=== PATIENT | male | born 1960 | race Caucasian/White ===

== ENCOUNTER → 2018-04-22 12:31 | Outpatient (CLI) | payer MEDICARE | END | disposition home or self-care (01) | LOC: D.CT 12:31 | DX: R19.09 Other intra-abdominal and pelvic swelling, mass and lump (principal) ==

== ENCOUNTER → 2018-05-04 06:32 | Outpatient (CLI) | payer MEDICARE ==
[2018-05-05 13:14] LABS: HEPATITIS C ANTIBODY 0.2 (0.0-0.9)
== END | disposition home or self-care (01) ==
LOC: D.LAB 06:32 → D.MRI 07:00
PROVIDERS: Internal Medicine Gastroenterology
DX: R93.8 Abnormal findings on diagnostic imaging of other specified body structures (principal); R63.4 Abnormal weight loss; R10.13 Epigastric pain; R11.0 Nausea; R14.3 Flatulence; R14.0 Abdominal distension (gaseous); R10.32 Left lower quadrant pain

== ENCOUNTER → 2018-07-09 11:20 | Outpatient (CLI) | payer MEDICARE ==
[~2018-07-09 11:20] MED LIST: FLOMAX0.4 MG PO; HYDROCODON-ACE1 EAC7 PO
== END | disposition home or self-care (01) ==
LOC: D.CT 11:20
DX: I88.0 Nonspecific mesenteric lymphadenitis (principal)

== ENCOUNTER 2018-08-09 22:56 | Emergency (ER) | payer MEDICARE ==
[~2018-08-09] VITALS: Ht 182.9 cm; Wt 88.6 kg
[2018-08-09 22:58] VITALS: Ht 182.9 cm; Wt 88.6 kg
[2018-08-10 00:06] LABS: BASOPHILS 0.3 % (0-2); EOSINOPHILS 1.4 % (0-7); HEMOGLOBIN 15.3 g/dL (13.5-17.5); IMMATURE GRANULOCYTES 0.2 % (0-5); LYMPHOCYTES 15.5 % (15-50); MCH 31.8 pg (26.0-34.0); MCHC 35.6 g/dL (31.0-37.0); MCV 89.4 fL (80.0-100.0); MEAN PLATELET VOLUME 11.1 fL (7.4-10.4); MONOCYTES 8.7 % (2-11); NEUTROPHILS 73.9 % (40-80); PLATELET COUNT 174 10x3/uL (130-400); RBC 4.81 10x6/uL (4.20-6.10); RDW 12.7 % (11.5-14.5); WBC 11.1 10x3/uL (4.8-10.8)
[2018-08-10 00:29] LABS: APPEARANCE HAZY (CLEAR); BACTERIA NONE SEEN /hpf (NONE SEEN); BILIRUBIN NEGATIVE (NEGATIVE); COLOR YELLOW (YELLOW); EPITHELIAL CELLS NSEEN /hpf (0-5); GLUCOSE NEGATIVE (NEGATIVE); KETONE MODERATE mg/dL (NEGATIVE); NITRITE NEGATIVE (NEGATIVE); PROTEIN TRACE mg/dL (NEGATIVE); RED CELLS - URINE >50 /hpf (0-5); SPECIFIC GRAVITY 1.015 (1.005-1.020); UROBILINOGEN NORMAL (NORMAL); WHITE CELLS - URINE NSEEN /hpf (0-5)
[2018-08-10 00:30] LABS: ANION GAP 22.3 mmol/L (8-16); BILIRUBIN - TOTAL 0.48 mg/dL (0.2-1.3); CALCIUM 8.6 mg/dL (8.5-10.1); CARBON DIOXIDE 21.5 mmol/L (21.0-32.0); CREATININE - SERUM 1.5 mg/dL (0.6-1.3); POTASSIUM - SERUM 3.8 mmol/L (3.5-5.1); PROTEIN - SERUM 7.5 g/dL (6.4-8.2)
[2018-08-10 00:30] LABS: AMORPHOUS SEDIMENT >1+ /lpf (NONE SEEN); URIC ACID CRYSTALS RARE /hpf (NONE SEEN)
[2018-08-10] MEDS ORDERED: HYDROCODON-ACE1 EAC7 PO (00:43)
[2018-08-10] MEDS ORDERED: FLOMAX0.4 MG PO (00:43)
[2018-08-10 01:19] VITALS: BP 114/75
== END 2018-08-10 01:19 | disposition home or self-care (01) ==
LOC: D.ER 22:56
PROVIDERS: Family Medicine
DX: N20.1 Calculus of ureter (principal)

== ENCOUNTER 2020-05-12 20:16 | Emergency (ER) | payer MEDICARE ==
[~2020-05-12] VITALS: Ht 182.9 cm; Wt 95.5 kg
[2020-05-12 20:28] VITALS: Ht 182.9 cm; Wt 95.5 kg
[2020-05-12 20:55] LABS: BASOPHILS 0.1 % (0-2); EOSINOPHILS 0.1 % (0-7); HEMATOCRIT 46.4 % (42.0-54.0); HEMOGLOBIN 16.1 g/dL (13.5-17.5); IMMATURE GRANULOCYTES 0.1 % (0-5); LYMPHOCYTES 11.3 % (15-50); MCH 31.9 pg (26.0-34.0); MCHC 34.7 g/dL (31.0-37.0); MCV 91.9 fL (80.0-100.0); MEAN PLATELET VOLUME 10.8 fL (7.4-10.4); MONOCYTES 6.8 % (2-11); NEUTROPHILS 81.6 % (40-80); PLATELET COUNT 202 10x3/uL (130-400); RBC 5.05 10x6/uL (4.20-6.10); WBC 8.9 10x3/uL (4.8-10.8)
[2020-05-12] MEDS ORDERED: FLOMAX0.4 MG PO (21:01)
[2020-05-12 21:02] LABS: BILIRUBIN NEGATIVE (NEGATIVE); GLUCOSE NEGATIVE (NEGATIVE); KETONE SMALL mg/dL (NEGATIVE); NITRITE NEGATIVE (NEGATIVE); UROBILINOGEN NORMAL (NORMAL)
[2020-05-12] MEDS ORDERED: HYDROCODON-ACE1 EAC7 PO (21:02)
[2020-05-12 21:03] LABS: RED CELLS - URINE >50 /hpf (0-5); WHITE CELLS - URINE OCC /hpf (NEGATIVE)
[2020-05-12] MEDS ORDERED: ZOFRAN ODT4 MG/UDTAB PO (21:07)
[2020-05-12 21:24] LABS: ANION GAP 13.1 mmol/L (8-16); CALCIUM 9.3 mg/dL (8.5-10.1); CREATININE - SERUM 1.8 mg/dL (0.6-1.3); POTASSIUM - SERUM 4.1 mmol/L (3.5-5.1)
[2020-05-12 21:30] LABS: ALBUMIN 4.3 g/dL (3.4-5.0); BILIRUBIN - TOTAL 0.76 mg/dL (0.2-1.3); PROTEIN - SERUM 7.7 g/dL (6.4-8.2)
== END 2020-05-12 22:21 | disposition home or self-care (01) ==
LOC: D.ER 20:16
PROVIDERS: Family Medicine
DX: N20.0 Calculus of kidney (principal)

== ENCOUNTER → 2021-04-18 07:46 | Outpatient (CLI) | payer MEDICARE ==
[2020-05-12 20:28] VITALS: BMI 28.5
[~2021-04-18 07:46] MED LIST changes: +ZOFRAN ODT4 MG/UDTAB PO
[2021-04-18 08:44] LABS: ALBUMIN 3.9 g/dL (3.4-5.0); BILIRUBIN - DIRECT 0.15 mg/dL (0.00-0.30); BILIRUBIN - INDIRECT 0.48 mg/dL (0.00-1.00); BILIRUBIN - TOTAL 0.63 mg/dL (0.2-1.3); PROTEIN - SERUM 7.3 g/dL (6.4-8.2)
== END | disposition home or self-care (01) ==
LOC: D.US 07:46
PROVIDERS: ATTEND Internal Medicine Gastroenterology
DX: K76.0 Fatty (change of) liver, not elsewhere classified (principal)